=== PATIENT | female | born 1955 | race Caucasian/White ===

== ENCOUNTER 2019-07-29 14:13 | Outpatient (CLI) | payer OTHER, SELFPAY ==
--- NOTE | ~2019-07-29 | XR_ITS ---
XR knee RT min 4V DATE: 07/29/2019 14:41 INDICATION: Medial knee pain, swelling TECHNIQUE: 4 views COMPARISON: None FINDINGS: There is mild loss of height at the mid lumbar interspaces with mild particular spurring co nsistent with osteoarthritis. There is hypertrophic change of the tibial spines. No fracture or dislocation or joint effusion. No periosteal reaction or bone destruction. No radiopaq ue intra-articular loose body or chondrocalcinosis. IMPRESSION: Mild osteoarthritis primarily at medial compartment Reviewed, dictated and finalized at location A.
== END 2019-07-29 14:14 | disposition home or self-care (01) ==
PROVIDERS: PCP Family Medicine
DX: M17.11 Unilateral primary osteoarthritis, right knee (principal)
CPT/HCPCS: 73564

== ENCOUNTER 2019-08-25 19:33 | Outpatient (CLI) | payer OTHER, SELFPAY ==
--- NOTE | ~2019-08-25 | MR_ITS ---
EXAMINATION: MR knee RT wo/w con DATE: 08/25/2019 20:39 INDICATION: Right knee pain and swelling TECHNIQUE: Magnetic resonance imaging (MRI) of the right knee was performed without and with 14 mL Mu ltihance intravenous contrast. Sequences included sagittal and coronal T2-weighted FSE and T1-weight ed FSE, axial T1-weighted FS FSE, sagittal PD-weighted FSE and postcontrast T1-weighted FS FSE . COMPARISON: Right knee radiographs dated 07/29/2019 FINDINGS: Medial compartment: Longitudinal horizontal tear extending to the inferior articular surface of the body and posterior ho rn of the medial meniscus. Partial-thickness cartilage loss along the medial tibial plateau and media l side of the anterior to posterior weightbearing medial femoral condyle with small regions of likely full-thickness ulceration with underlying subarticular edema at the anteromedial aspect of the media l tibial plateau and along the medial rim of the anterior to central weightbearing medial femoral con dyle. Small marginal osteophytes are present. Lateral compartment: Additional horizontal tear extending to the inferior articular surface of the posterior horn and post erior body of the lateral meniscus. Partial-thickness cartilage loss with chondral surface irregulari ty along the medial side of the lateral tibial plateau extending onto the shoulder the intercondylar eminence. Patellofemoral compartment: Articular cartilage is normal. Ligaments and tendons: Anterior and posterior cruciate ligaments are normal. The medial collateral ligament and fibular molly ateral ligament complex are normal. The extensor mechanism is normal. The visualized medial and later al hamstring tendons as well as the iliotibial band are normal. Fluid: Physiologic amount of fluid in the joint space. No loose osteochondral bodies identified. Osseous/other: Normal marrow signal aside from the previously noted foci of subarticular edema in the medial compart ment. There is mild enhancement centimeters at the sites of subarticular edema. No other abnormally e nhancing lesions identified. No fracture or pathologic marrow replacing process. IMPRESSION: 1. Medial and lateral meniscal tears. 2. Mild osteoarthritis in the medial and lateral compartments with high-grade chondromalacia in the f ormer and with extensive moderate grade chondromalacia at the latter. Reviewed, dictated and finalized at location A. IMPRESSION: 1. Medial and lateral meniscal tears. 2. Mild osteoarthritis in the medial and lateral compartments with high-grade c hondromalacia in the former and with extensive moderate grade chondromalacia at the latter.
[2019-08-25 20:15] LABS: Estimated Glomerular Filt Rate > 60
== END 2019-08-25 19:34 | disposition home or self-care (01) ==
PROVIDERS: PCP Family Medicine; Visit Provider Family Medicine
DX: M17.11 Unilateral primary osteoarthritis, right knee (principal); M79.89 Other specified soft tissue disorders; S83.241A Other tear of medial meniscus, current injury, right knee, initial encounter; S83.281A Other tear of lateral meniscus, current injury, right knee, initial encounter; X58.XXXA Exposure to other specified factors, initial encounter
CPT/HCPCS: 36415; 73723; A9577

== ENCOUNTER 2019-09-06 09:47 | Outpatient (CLI) | payer OTHER, SELFPAY ==
--- NOTE | ~2019-09-06 | MM_ITS ---
EXAMINATION: MM screening garett BI w love HISTORY: Screening mammogram TECHNIQUE: Craniocaudal and mediolateral oblique 3-D tomosynthesis images were obtained and synthetic 2-D images were generated. CAD analysis was submitted and interpreted. COMPARISON: No prior mammogram is available for comparison at this institution. BREAST PARENCHYMAL COMPOSITION: There are scattered areas of fibroglandular density. FINDINGS: There is focal asymmetry in the upper outer quadrant of the right breast posteriorly. There is no mammographic evidence for malignancy in the left breast. IMPRESSION: 1. Focal right breast asymmetry, upper outer quadrant. 2. Additional mammographic views and possible breast ultrasound are recommended. BI-RADS Category 0: Incomplete: Needs additional imaging evaluation. Reviewed, dictated and finalized at location A. IMPRESSION: 1. Focal right breast asymmetry, upper outer quadrant. 2. Additional mammographic views and possible breast ultrasound are recommended . BI-RADS Category 0: Incomplete: Needs additional imaging evaluation.
--- NOTE | ~2019-09-06 | DEXA_ITS ---
Bone Density Report Name: Fallon Alvarado Age: 63 Sex: Female Ethnicity: White Date of : 1955 Indication: postmenopausal; prior fracture; Referring Provider: EDWIN, CORBIN Study: Bone densitometry was performed. Exam Date: September 06, 2019 Accession number: [id number] Bone Density: Region BMD T-score Z-score Classification AP Spine (L3, L4) 1.061 -0.4 1.5 Normal Femoral Neck (Left) 0.941 0.8 2.3 Normal Total Hip (Left) 0.977 0.3 1.5 Normal Total Hip Bilateral Avg 0.969 0.2 1.5 Normal Femoral Neck (Right) 0.926 0.7 2.2 Normal Total Hip (Right) 0.960 0.1 1.4 Normal World Health Organization criteria for BMD impression classify patients as: Normal (T-score at or above -1.0), Osteopenia (T-score between -1.0 and -2.5), or Osteoporosis (T-score at or below -2.5). 10-year Fracture Risk: FRAX not reported because: All T-scores for Spine Total, Hip Total, Femoral Neck at or above -1.0 Clinical Information Provided by Patient: Has had a low trauma fracture Has used the following medications: Calcium Patient maximum height was 63.5 Menopause Age: 39 No regular weight bearing exercise Drinks caffeinated beverages Onset of menses at age 14 Number of children 2 Impression: The patient has normal bone mass. The patient has risk factors, including: previous fracture. Discussion: BONE DENSITY IS ABOVE THE MINIMUM DESIRABLE LEVEL AT ALL SKELETAL SITES TESTED. This patient?s bone mineral density is above the minimum desirable level (T-score -1.0 or better) at all sites measured. The patient should follow a healthful lifestyle (good nutrition with adequate calcium and vitamin D, and appropriate weight-bearing exercise). Follow-Up: Consider repeating this study in 5 years or sooner if there is some new clinical indication. Reported by: COLETTE on 09/06/2019 10:18:00 AM. Reviewed, dictated and finalized at location [facility]er [facility]
== END 2019-09-06 09:48 | disposition home or self-care (01) ==
PROVIDERS: PCP Family Medicine; Visit Provider Nurse Practitioner
DX: Z12.31 Encounter for screening mammogram for malignant neoplasm of breast (principal); Z78.0 Asymptomatic menopausal state; R92.8 Other abnormal and inconclusive findings on diagnostic imaging of breast
CPT/HCPCS: 77063; 77067; 77080

== ENCOUNTER 2019-10-06 10:47 | Outpatient (CLI) | payer OTHER, MEDICARE, SELFPAY ==
--- NOTE | ~2019-10-06 | MMUS_ITS ---
EXAMINATION: MM diagnostic mammo unilat RT, US breast RT complete HISTORY: Focal asymmetry in upper outer quadrant of right breast reported on 09/06/2019 screening mamm ogram TECHNIQUE: Additional 3-D tomosynthesis images of the right breast were performed and synthetic 2-D i mages were generated. CAD analysis was submitted and interpreted. High resolution complete right tamara st ultrasound was performed. COMPARISON: 09/06/2019 bilateral digital screening mammogram FINDINGS: MAMMOGRAPHIC FINDINGS: No suspicious mass or architectural distortion is evident on these supplemental right mammographic vi ews. ULTRASOUND: At 4:00 3 cm from the nipple there is a 3.5 x 2.7 x 2.2 mm minimally septated sonolucent lesion, like ly a small minimally septated cyst. No suspicious mass or shadowing is evident elsewhere in the right breast. IMPRESSION: 1. No mammographic evidence of malignancy 2. Routine mammographic screening is recommended BI-RADS Category 2: Benign finding(s). Reviewed, dictated and finalized at location A. IMPRESSION: 1. No mammographic evidence of malignancy 2. Routine mammographic screening is recommended BI-RADS Category 2: Benign finding(s).
== END 2019-10-06 10:48 | disposition home or self-care (01) ==
PROVIDERS: PCP Family Medicine; Visit Provider Obstetrics & Gynecology Gynecology
DX: R92.8 Other abnormal and inconclusive findings on diagnostic imaging of breast (principal)
CPT/HCPCS: 76641; 77065

== ENCOUNTER 2019-10-23 08:11 | Outpatient (CLI) | payer OTHER, MEDICARE, SELFPAY ==
--- NOTE | 2019-10-23 08:14 | ECG_ITS ---
Measurements Intervals [place] Rate: 80 P: 58 ME: 140 QRS: 20 QRSD: 84 T: 41 QT: 343 QTc: 398 Interpretive Statements SINUS RHYTHM NONSPECIFIC T-WAVE ABNORMALITY- ANTERIOR LEADS BASELINE ARTIFACT- I, III, AVL BORDERLINE ECG Electronically Signed On 10-23-2019 8:28:50 CDT by Jimy Figueroa D.O.
[2019-10-23 08:45] LABS: Anion Gap 8 mmol/L (8-16); Blood Urea Nitrogen 17 mg/dL (7-17); Calcium 9.2 mg/dL (8.4-10.2); Carbon Dioxide 28 mmol/L (22-30); Chloride 102 mmol/L (98-107); Estimated Glomerular Filt Rate > 60; Glucose 160 mg/dL (65-105); Potassium 3.9 mmol/L (3.4-5.0); Sodium 138 mmol/L (137-145)
== END 2019-10-23 08:12 | disposition home or self-care (01) ==
PROVIDERS: Anesthesiology; PCP Family Medicine; Visit Provider Orthopaedic Surgery
DX: Z79.899 Other long term (current) drug therapy (principal); I10 Essential (primary) hypertension; R94.31 Abnormal electrocardiogram [ECG] [EKG]
CPT/HCPCS: 36415; 80048; 93005

== ENCOUNTER 2019-11-01 00:09 | Outpatient (CLI) | payer OTHER, MEDICARE, SELFPAY ==
[2019-11-01 19:29] LABS: SARS-CoV-2 RNA PCR Negative
== END 2019-11-01 00:10 | disposition home or self-care (01) ==
LOC: ANHCOVIDDT 00:10
PROVIDERS: PCP Family Medicine; Visit Provider Orthopaedic Surgery
DX: Z01.812 Encounter for preprocedural laboratory examination (principal); Z20.828 Contact with and (suspected) exposure to other viral communicable diseases
CPT/HCPCS: 87635; C9803; U0003

== ENCOUNTER 2019-11-04 00:33 | Day surgery (SDC) | payer OTHER, MEDICARE, SELFPAY ==
[2019-10-20 13:55] VITALS: BMI 28.3
--- NOTE | 2019-11-03 08:39 | WPDANESEPPF ---
Anes - Initial Pre Proc Eval Procedure: Operation Date: 11/04/19 10:00 Proposed Procedures p Right Knee Arthroscopy, Proceed As Indicated - Eddi Dobbins MD Date/Time: 11/03/19 08:39 Surgeon: Eddi Dobbins MD Pre Op Diagnosis: Right Medial And Lateral Meniscus Tear Patient Data Age: 64 Gender: F Height: 1.6 m Weight: 72.57 kg Allergies Allergy/AdvReac Type Severity Reaction Status Date / Time No Known Allergies Allergy Verified 11/04/19 08:51 Home Medications Medication Instructions Recorded Confirmed Type meloxicam 15 mg tablet 15 mg PO DAILY 10/09/19 11/04/19 History multivitamin 1 cap PO DAILY 10/09/19 11/04/19 History omeprazole 20 mg capsule,delayed 20 mg PO DAILY 10/09/19 11/04/19 History release chlorhexidine gluconate 4 % 1 applic TOPICAL ONCE #237 ml 10/13/19 11/04/19 Rx topical liquid atorvastatin 5 mg PO DAILY 10/20/19 11/04/19 History calcium carbonate-vitamin D3 1 tablet PO DAILY 10/20/19 11/04/19 History [Calcium with Vitamin D] cyanocobalamin (vitamin B-12) 1,000 mcg PO DAILY 10/20/19 11/04/19 History [Vitamin B-12] escitalopram oxalate [Lexapro] 5 mg PO DAILY 10/20/19 11/04/19 History lisinopril-hydrochlorothiazide 0.5 tablet PO DAILY 10/20/19 11/04/19 History meclizine 12.5 mg PO DAILY 10/20/19 11/04/19 History Patient hx anesthesia problems: none Family hx anesthesia problems: none PMFSH Past Medical History Medical History (Updated 11/03/19 @ 08:39 by Shalom Naylor DO) Arthritis Depression Dizziness GERD (gastroesophageal reflux disease) Hyperlipidemia Hypertension Rheumatoid arthritis Vertigo Family History Family History (Updated 10/09/19 @ 15:21 by Jennifer Maciel, RT(R)) Other Diabetes mellitus Heart disease Hypertension Social History Social History (Updated 10/09/19 @ 15:21 by Jennifer Maciel RT(R)) Smoking status: Never smoker Alcohol intake: never Spiritual care concerns: No Anes - Eval Final PreProcedure Day of Procedure 11/03/19 08:39 Patient weight: overweight Heart: regular rate and rhythm Lungs: clear to auscultation and normal air movement Airway: Mallampati scale class III Neurological: alert and oriented Last oral intake: >/= 8 hours ASA classification: III Emergent: no Anesthetic plan: proceed Anesthesia type and monitoring: general LMA and standard monitoring Informed Consent: The patient's anesthetic plan and its attendant risks and benefits were discussed with the patient/family/POA. Questions were solicited and answers provided to the satisfaction of the patient/family/POA.
[2019-11-04] VITALS (8 sets, daily range): BP systolic 126–154; BP diastolic 68–81; PULSE 73–91; RESP 12–18; TEMP 36.3–36.8; O2SAT 92–100; BMI 28.8
--- NOTE | 2019-11-04 07:21 | WPDHPUPDATE1 ---
History and Physical Update Update Date/Time: 11/04/19 07:21 History and Physical has been reviewed, including an updated exam of the patient. There are NO changes in the patient's condition. Risks, benefits, and alternatives have been discussed and questions answered. Patient agrees to proceed with procedure.
[2019-11-04] MEDS: ACETAMINOPHEN 500 MG TABLET 1000 MG PO (08:32)
[2019-11-04] MEDS: CELECOXIB 200 MG CAPSULE PO (08:32)
[2019-11-04] MEDS: LACTATED RINGERS 1,000 ML 30 ML IV CONT ×3 (08:44→13:09)
--- NOTE | 2019-11-04 08:49 | SUR.PREOP ---
PT STATES SHE HAS CRUTCHES AT HOME AND KNOWS HOW TO USE THEM. STATES SHE DOES NOT NEED CRUTCH TRAINING
--- NOTE | 2019-11-04 08:53 | SUR.PREOP ---
PT STATES SHE STOPPED ALL OF HER HOME MEDICATIONS ONE WEEK AGO EXCEPT HER LEXAPRO.
[2019-11-04] MEDS: ceFAZolin 2 GM/D5W 50 ML 2 GM/50 ML BAG IVPB (09:44)
--- NOTE | 2019-11-04 11:03 | PM.OP ---
Procedure Note - Brief Procedure Note - Brief Date of procedure: 11/04/19 Pre-op diagnosis: Right Medial And Lateral Meniscus Tear Post-op diagnosis: same Procedure performed: R KNEE SCOPE Anesthesia: GLMA Surgeon: Eddi Dobbins MD Estimated blood loss (mL): 5 Complications: No immediate complications Condition: stable Disposition: PACU
--- NOTE | 2019-11-05 06:15 | OP_ITS ---
DATE OF PROCEDURE: 11/04/2019 PREOPERATIVE DIAGNOSES: Partial medial meniscectomy, partial lateral meniscectomy. POSTOPERATIVE DIAGNOSES: Partial medial meniscectomy, partial lateral meniscectomy with grade 4 chondromalacia, medial femoral condyle and medial plateau. PROCEDURE: Right knee arthroscopy with partial medial meniscectomy, partial lateral meniscectomy, abrasion arthroplasty, and major synovectomy. ANESTHESIA: General. COMPLICATIONS: None. INDICATIONS: This is a 64-year-old female with medial meniscus and lateral meniscus tear. She was indicated for right knee arthroscopy. DESCRIPTION OF PROCEDURE: The patient was taken to the operating room in stable condition and placed in supine position. General anesthesia was induced and then the right lower extremity was prepped and draped sterilely from the toes to the thigh. Superomedial portal was used for outflow cannula. Inferolateral portal was used for the camera. The camera was introduced. There was grade 2 chondromalacia to the trochlea and to the patella. There was abundant of synovitis in the superomedial pouch. There was significant synovitis in the Hoffa synovium. The medial compartment was entered. There was a complex tear of the medial meniscus. A medial portal was established. The shaver and a biter were introduced at separate times to resect the medial meniscus that was affected, and then was contoured to a smooth base. There is an area of full-thickness cartilage defect in both the medial femoral condyle and the medial plateau and a Nasrin pick was placed and an abrasion arthroplasty, microfracture technique was performed until there was good bleeding bone from the whole sides. Next, a synovectomy was performed in the medial compartment. Next, the ACL was identified and was intact. Lateral compartment was entered. There was a small complex tear of the lateral meniscus that was resected with a shaver and a biter. Synovectomy was performed in that region as well. Next, the patellofemoral joint underwent chondroplasty. Hoffa synovium underwent synovectomy and then the trochlea also underwent chondroplasty. The instruments were removed after thorough irrigation of the knee joint. The wounds were approximated with 4-0 nylon suture. Sterile dressing was applied. The patient was extubated. Jania I MT: Axel
== END 2019-11-04 13:13 | disposition home or self-care (01) ==
PROVIDERS: PCP Family Medicine; Visit Provider Orthopaedic Surgery
PROC: (CPT 29870; principal; 2019-11-04 10:00)
DX: S83.231A Complex tear of medial meniscus, current injury, right knee, initial encounter (principal); S83.271A Complex tear of lateral meniscus, current injury, right knee, initial encounter; X50.0XXA Overexertion from strenuous movement or load, initial encounter; Y93.83 Activity, rough housing and horseplay; Y99.8 Other external cause status
CPT/HCPCS: 29880; A9270; J0690; J1100; J2250; J2405; J2704; J3010; J7120

== ENCOUNTER 2019-11-30 17:52 | Emergency (ER) | payer OTHER, MEDICARE, SELFPAY ==
--- NOTE | ~2019-11-30 | CT_ITS ---
EXAMINATION: CTA chest PE protocol DATE: 11/30/2019 19:09 INDICATION: Cough. TECHNIQUE: Computed tomography angiography (CTA) of the chest was performed with 100 mL Omnipaque-350 intravenous contrast timed to evaluate the pulmonary arteries. Coronal maximum intensity projection 3D-reconstructions were created by the technologist. Automated exposure control and iterative reconst ruction technique were employed. The dose-length product was 247.81 mGy-cm. COMPARISON: CT abdomen and pelvis 12/23/2017 FINDINGS: There is mild scarring at the lung apices. There is mild atelectasis bilaterally. Calcified right lung nodules and calcified right hilar lymph nodes are consistent with old granulomatous disea se. No pleural effusion. The heart size is normal. There are coronary artery calcifications. No peric ardial effusion. Calcifications in the spleen are consistent with old granulomatous disease. There is no pulmonary embolus. There is mild thoracic spondylosis. IMPRESSION: 1. No pulmonary embolus. Reviewed, dictated and finalized at location A. IMPRESSION: 1. No pulmonary embolus.
--- NOTE | ~2019-11-30 | XR_ITS ---
EXAMINATION: XR chest 1V portable DATE: 11/30/2019 18:26 INDICATION: Right shoulder pain. TECHNIQUE: A single frontal view of the chest was obtained. COMPARISON: Chest 2 views 12/23/2017 FINDINGS: The chest demonstrates clear lungs without pneumonia, pleural effusion, or pneumothorax. Th e heart size is normal. There is a prominent right paracardial fat pad. IMPRESSION: 1. No acute cardiopulmonary disease. Reviewed, dictated and finalized at location A.
[2019-11-30 17:54] VITALS: BP 129/95; PULSE 103; RESP 18; TEMP 36.1; O2SAT 98
--- NOTE | 2019-11-30 18:10 | ED.GENADULT ---
HPI - General Adult General Chief complaint: Extremity Injury, Upper Stated complaint: right arm pain/ bronchitis Time Seen by Provider: 11/30/19 18:04 Source: patient, family and old records reviewed Mode of arrival: ambulatory Limitations: no limitations History of Present Illness HPI narrative: Patient is a 64-year-old female who presents to emergency department for evaluation of right arm pain for the last 2 to 3 days as an aching pain from the neck down into the arm described as spasms patient notes she was seen by primary care in the last day diagnosed with bronchitis and has been having a cough and some dyspnea since developing the cough 3 weeks ago which is nonproductive denies other URI symptoms or sick contacts patient was seen by primary care and given codeine cough syrup and an inhaler patient notes she has not had to use the inhaler patient on arrival notes that she has had this aching pain of the arm nothing is made it better or worse patient denies injury trauma or similar occurrence in the past Related Data Home Medications Medication Instructions Recorded Confirmed meloxicam 15 mg tablet 15 mg PO DAILY 10/09/19 11/04/19 multivitamin 1 cap PO DAILY 10/09/19 11/04/19 omeprazole 20 mg capsule,delayed 20 mg PO DAILY 10/09/19 11/04/19 release atorvastatin 5 mg PO DAILY 10/20/19 11/04/19 calcium carbonate-vitamin D3 1 tablet PO DAILY 10/20/19 11/04/19 [Calcium with Vitamin D] cyanocobalamin (vitamin B-12) 1,000 mcg PO DAILY 10/20/19 11/04/19 [Vitamin B-12] escitalopram oxalate [Lexapro] 5 mg PO DAILY 10/20/19 11/04/19 lisinopril-hydrochlorothiazide 0.5 tablet PO DAILY 10/20/19 11/04/19 meclizine 12.5 mg PO DAILY 10/20/19 11/04/19 codeine-guaifenesin [Virtussin AC] ml 11/30/19 Allergies Allergy/AdvReac Type Severity Reaction Status Date / Time No Known Allergies Allergy Verified 11/30/19 17:52 Review of Systems Review of Systems: All systems reviewed & are unremarkable except as noted in HPI and below PMFSH Past Medical History Medical History Arthritis Depression Dizziness GERD (gastroesophageal reflux disease) Hyperlipidemia Hypertension Rheumatoid arthritis Vertigo Social History Social History Smoking status: Never smoker Alcohol intake: never Gender identity (if verbalized by the patient): Female Spiritual care concerns: No Exam Narrative: Exam Narrative: GENERAL: Well-appearing, well-nourished, and in no acute distress. HEAD: Normocephalic, atraumatic. EYES: PERRLA and EOMI. ENT: Nares clear, no rhinorrhea or epistaxis. Mucous membranes moist. Oropharynx without tonsillar hypertrophy exudate or other lesions. NECK: Supple. No adenopathy or masses. CHEST: Clear to auscultation. No respiratory distress. No wheezes rales or rhonchi HEART: Regular rate and rhythm. No murmur heard. Normal peripheral pulses. EXTREMITIES: Normal range of motion. No edema. Tenderness of the right trapezius musculature with spasming bilaterally SKIN: Warm, dry, no rash. NEURO: No focal deficits. Alert and oriented x3. Cranial nerves II through XII grossly intact. Normal speech. Neurovascularly intact. Capillary refill less than 2 seconds PSYCH: Normal mood and affect. Course Vital Signs Vital signs: Vital Signs Temperature 97 F L 11/30/19 17:54 Pulse Rate 103 H 11/30/19 17:54 Respiratory Rate 18 11/30/19 17:54 Blood Pressure 129/95 H 11/30/19 17:54 Pulse Oximetry 98 11/30/19 17:54 Temperature 97 F L 11/30/19 17:54 Pulse Rate 103 H 11/30/19 17:54 Respiratory Rate 18 11/30/19 17:54 Blood Pressure 129/95 H 11/30/19 17:54 Pulse Oximetry 98 11/30/19 17:54 Medical Decision Making MDM Narrative Medical decision making narrative: Patient in the room at this time in no distress no PE seen on exam will be treated for musculoskeletal pain referred to p
[2019-11-30 18:35] LABS: Basophils Absolute Auto 0.1 K/mm3 (0.0-0.1); Basophils Percent Auto 0.7 % (0.2-1.2); Eosinophils Absolute Auto 0.3 K/mm3 (0-0.3); Eosinophils Percent Auto 3.3 % (0-4.4); Hematocrit 39.1 % (37.0-47.0); Immature Granulocyte Absolute 0.02 K/mm3 (0.00-0.031); Immature Granulocyte Percent A 0.3 % (0-0.5); Lymphocytes Absolute Auto 2.51 K/mm3 (0.9-3.2); Lymphocytes Percent Auto 33.2 % (18.3-44.2); Mean Corpuscular HGB Conc 33.2 g/dl (32-36); Mean Corpuscular Hemoglobin 28.2 pg (26-34); Mean Corpuscular Volume 84.8 fl (80-100); Monocytes Absolute Auto 0.6 K/mm3 (0.1-0.6); Monocytes Percent Auto 7.5 % (2.6-8.5); Neutrophils Absolute Auto 4.2 K/mm3 (1.3-6.7); Platelet Count Result 354 k/mm3 (150-375); Red Blood Count 4.61 M/mm3 (4.2-5.4); Red Cell Distribution Width 13.9 % (11.5-14.5); White Blood Count 7.6 K/mm3 (4.5-10.0)
[2019-11-30] MEDS: diazePAM (*CRX) 5 MG TABLET PO (18:35)
[2019-11-30] MEDS: KETOROLAC 30 MG/ML VIAL (*BKC) IV PUSH (18:35)
[2019-11-30 18:46] LABS: INR 0.9; Prothrombin Time 12.3 Seconds (11.1-14.7)
[2019-11-30 18:47] LABS: Partial Thromboplastin Time 25.5 SECONDS (22.3-36.8)
[2019-11-30 18:49] LABS: D Dimer 0.72 ug/mL (<0.48)
[2019-11-30 18:53] LABS: Anion Gap 4 mmol/L (8-16); Blood Urea Nitrogen 20 mg/dL (7-17); Calcium 9.4 mg/dL (8.4-10.2); Carbon Dioxide 28 mmol/L (22-30); Chloride 104 mmol/L (98-107); Estimated CRCL calculation 52 ml/min; Estimated Glomerular Filt Rate > 60; Glucose 104 mg/dL (65-105); Sodium 136 mmol/L (137-145)
[2019-11-30 19:33] VITALS: BP 117/66; PULSE 77; RESP 16; TEMP 36.6; O2SAT 94
== END 2019-11-30 19:35 | disposition home or self-care (01) ==
PROVIDERS: Emergency Medicine Emergency Medical Services; Emergency Provider Emergency Medicine; PCP Family Medicine
DX: M79.601 Pain in right arm (principal); J40 Bronchitis, not specified as acute or chronic; M19.90 Unspecified osteoarthritis, unspecified site; F32.9 Major depressive disorder, single episode, unspecified; K21.9 Gastro-esophageal reflux disease without esophagitis; E78.5 Hyperlipidemia, unspecified; I10 Essential (primary) hypertension; M06.9 Rheumatoid arthritis, unspecified
CPT/HCPCS: 36415; 71045; 71275; 80048; 85025; 85380; 85610; 85730; 96374; 99284; A9270; J1885; Q9967

== ENCOUNTER 2024-01-20 16:13 | Emergency (ER) | payer OTHER, MEDICARE, MEDICAID, SELFPAY ==
--- NOTE | ~2024-01-20 | CT_ITS ---
EXAMINATION: CT cervical spine wo con DATE: 01/20/2024 16:45 INDICATION: Fall, Posterior H.I./ Cervical pain TECHNIQUE: Computed tomography (CT) of the cervical spine was performed without intravenous contrast. Automated exposure control and iterative reconstruction technique were employed. The dose-length pro duct was 279.78 mGy-cm. COMPARISON: None. FINDINGS: Vertebral Body Alignment: Intact. Craniocervical and atlantoaxial alignment: Mild degenerative change. Alignment intact. Osseous structures/fracture: No evidence of a lytic or blastic process in the visualized spine. No e vidence of acute fracture. Cervical soft tissues: The paraspinal soft tissues planes are maintained. Biapical pleural scarring Degenerative changes: Degenerative changes, without severe neural foraminal or central canal narrowin g. IMPRESSION: No acute fracture or traumatic malalignment in the cervical spine. Reviewed, dictated and finalized at location K. [facility]
--- NOTE | ~2024-01-20 | XR_ITS ---
EXAM: XR knee RT 3V DATE: 01/20/2024 16:45 HISTORY: fall, Rt. knee pain . COMPARISON: 10/09/2019. FINDINGS: Decreased mineralization. No fracture or dislocation. No lytic or blastic lesion. Moderate tricompartmental osteoarthritis. No erosion or periosteal change. Small-volume joint effusio. IMPRESSION: No acute osseous finding in the right knee. Reviewed, dictated and finalized at location K. [employer]
--- NOTE | ~2024-01-20 | CT_ITS ---
EXAMINATION: CT brain wo con DATE: 01/20/2024 16:45 INDICATION: Fall, Posterior H.I./ Cervical pain . TECHNIQUE: Computed tomography (CT) of the head was performed without intravenous contrast. The mA wa s adjusted according to patient size. Iterative reconstruction technique was employed. The dose-lengt h product was 605.33 mGy-cm. COMPARISON: None. FINDINGS: No acute intracranial hemorrhage or extra-axial fluid collection. No hydrocephalus, mass, or herniation. No acute ischemic infarct. Unremarkable dural venous sinus attenuation. No acute osseous abnormality. Right posterior scalp swelling. Mild maxillary and ethmoid mucosal thickening, the remaining aerated spaces are clear. Moderate atrophy and chronic white matter change. Atherosclerotic intracranial calcification. 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 Small old right basal ganglia lacunar infarct. IMPRESSION: No acute intracranial process. Reviewed, dictated and finalized at location K. [employer]
--- NOTE | ~2024-01-20 | XR_ITS ---
EXAM: XR hip BI 2V w AP pelvis DATE: 01/20/2024 16:45 HISTORY: Fall, b/l hip pain . COMPARISON: None available. FINDINGS: Normal mineralization. No fracture or dislocation. No lytic or blastic lesion. Lumbar dege nerative disc disease. Mild degenerative change in the bilateral hips and pubic symphysis. No erosion or periosteal change. Soft tissues within normal limits. IMPRESSION: No acute osseous finding in the pelvis or bilateral hips. Reviewed, dictated and finalized at location K. [employer]
[2024-01-20 16:13] VITALS: BP 134/67; PULSE 95; RESP 16; TEMP 36.6; O2SAT 95
--- NOTE | 2024-01-20 16:25 | ED_ITS ---
HPI - General Adult General Chief complaint: Fall Stated complaint: fall, head injury Time Seen by Provider: 01/20/24 16:19 History of Present Illness HPI narrative: Fallon chavez a 68F with a PMH of a meniscus tear that presented to the ED after she tripped and fell down the stairs. She hit her head but did not lose consciousness. She has pain in the back of her head and in her left hip and right knee as well. She has no other concerns. Related Data Home Medications Medication Instructions Recorded Confirmed meloxicam 15 mg tablet 15 mg PO DAILY 10/09/19 01/20/24 omeprazole 20 mg capsule,delayed 20 mg PO DAILY 10/09/19 01/20/24 release atorvastatin 10 mg tablet 40 mg PO DAILY 10/20/19 01/20/24 calcium 600 mg (as 1 tablet PO DAILY 10/20/19 01/20/24 carbonate)-vitamin D3 10 mcg (400 unit) tablet (Calcium with Vitamin D) escitalopram oxalate 5 mg tablet 10 mg PO DAILY 10/20/19 01/20/24 (Lexapro) amlodipine 10 mg tablet 10 mg PO DAILY 01/20/24 01/20/24 hydrochlorothiazide 12.5 mg capsule 12.5 mg PO DAILY 01/20/24 01/20/24 Allergies Allergy/AdvReac Type Severity Reaction Status Date / Time GENE Inhibitors Allergy Anaphylaxis Verified 01/20/24 16:15 Review of Systems Review of Systems: All systems reviewed & are unremarkable except as noted in HPI and below PMFSH Past Medical History Medical History (Updated 01/20/24 @ 17:29 by Ivan Portillo DO) Arthritis Depression Dizziness GERD (gastroesophageal reflux disease) Hyperlipidemia Hypertension Rheumatoid arthritis Vertigo Family History Family History Other Diabetes mellitus Heart disease Hypertension Social History Social History Smoking status: Never smoker Alcohol intake: never Gender identity (if verbalized by the patient): Female Spiritual care concerns: No Exam Const: General: cooperative, healthy appearing, comfortable, no acute distress, well developed, alert, awake and Physically active Orientation/consciousness: oriented to person, oriented to place and oriented to time HENMT: Head: normal to inspection, normocephalic and atraumatic Ears: hearing grossly normal bilaterally and external ears normal Face/Nose/Sinus: Normal external nose present Other: contusion on posterior andrez Eyes: General: appearance normal, both eyes and all related structures Periorbital: periorbital findings normal Sclera: sclerae normal Pupils: Equal, round and reactive pupils present Neck: Neck: normal visual inspection Chest: Chest palpation & inspection: normal inspection of the chest Resp: Effort & Inspection: normal respiratory effort, able to speak in complete sentences and no respiratory distress Cardio: Jugular venous distension: no JVD Skin: General skin exam: normal color and no rashes or lesions noted Neuro: General: oriented to person, oriented to place and oriented to time Cranial nerves: Yes Equal, round and reactive pupils present Extrem: General: normal to inspection Course Course Emergency Course: Declined pain meds. Ordered imaging. EXAM: XR knee RT 3V DATE: 01/20/2024 16:45 HISTORY: fall, Rt. knee pain . COMPARISON: 10/09/2019. FINDINGS: Decreased mineralization. No fracture or dislocation. No lytic or blastic lesion. Moderate tricompartmental osteoarthritis. No erosion or periosteal change. Small-volume joint effusio. IMPRESSION: No acute osseous finding in the right knee. EXAM: XR hip BI 2V w AP pelvis DATE: 01/20/2024 16:45 HISTORY: Fall, b/l hip pain . COMPARISON: None available. FINDINGS: Normal mineralization. No fracture or dislocation. No lytic or blastic lesion. Lumbar degenerative disc disease. Mild degenerative change in the bilateral hips and pubic symphysis. No erosion or periosteal change. Soft tissues within normal limits. IMPRESSION: No acute osseous finding in the pelvis or bilateral hips. EXAMINATION: CT cervical spine wo con DATE: 01/20/2024 16:45 INDICATION: Fall, Posterior H.I./ Cervical pain TECHNIQUE: Computed tomography (CT) of the cervical spine was performed without intravenous contrast. Automated exposure control and iterative reconstruction technique were employed. The dose-length product was 279.78 mGy-cm. COMPARISON: None. FINDINGS: Vertebral Body Alignment: Intact. Craniocervical and atlantoaxial alignment: Mild degenerative change. Alignment intact. Osseous structures/fracture: No evidence of a lytic or blastic process in the visualized spine. No evidence of acute fracture. Cervical soft tissues: The paraspinal soft tissues planes are maintained. Biapical pleural scarring Degenerative changes: Degenerative changes, without severe neural foraminal or central canal narrowing. IMPRESSION: No acute fracture or traumatic malalignment in the cervical spine. EXAMINATION: CT brain wo con DATE: 01/20/2024 16:45 INDICATION: Fall, Posterior H.I./ Cervical pain . TECHNIQUE: Computed tomography (CT) of the head was performed without intravenous contrast. The mA was adjusted according to patient size. Iterative reconstruction technique was employed. The dose-length product was 605.33 mGy- cm. COMPARISON: None. FINDINGS: No acute intracranial hemorrhage or extra-axial fluid collection. No hydrocephalus, mass, or herniation. No acute ischemic infarct. Unremarkable dural venous sinus attenuation. No acute osseous abnormality. Right posterior scalp swelling. Mild maxillary and ethmoid mucosal thickening, the remaining aerated spaces are clear. Moderate atrophy and chronic white matter change. Atherosclerotic intracranial calcification. 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 Small old right basal ganglia lacunar infarct. IMPRESSION: No acute intracranial process. Vital Signs Vital signs: Vital Signs Temperature 97.8 F 01/20/24 16:13 Pulse Rate 95 01/20/24 16:13 Respiratory Rate 16 01/20/24 16:13 Blood Pressure 134/67 01/20/24 16:13 Pulse Oximetry 95 01/20/24 16:13 Oxygen Delivery Room Air 01/20/24 16:13 Temperature 97.8 F 01/20/24 16:13 Pulse Rate 95 01/20/24 16:13 Respiratory Rate 16 01/20/24 16:13 Blood Pressure 134/67 01/20/24 16:13 Pulse Oximetry 95 01/20/24 16:13 Oxygen Delivery Room Air 01/20/24 16:13 Medical Decision Making Vital Signs Vital Signs: Vital Signs Temperature 97.8 F 01/20/24 16:13 Pulse Rate 95 01/20/24 16:13 Respiratory Rate 16 01/20/24 16:13 Blood Pressure 134/67 01/20/24 16:13 Pulse Oximetry 95 01/20/24 16:13 Oxygen Delivery Room Air 01/20/24 16:13 Temperature 97.8 F 01/20/24 16:13 Pulse Rate 95 01/20/24 16:13 Respiratory Rate 16 01/20/24 16:13 Blood Pressure 134/67 01/20/24 16:13 Pulse Oximetry 95 01/20/24 16:13 Oxygen Delivery Room Air 01/20/24 16:13 Discharge Plan Discharge Clinical Impression: Fall Patient Disposition: Home, Self-Care Condition: Stable Instructions: Fall Prevention for Older Adults (ED) Prescriptions: No Action amlodipine 10 mg tablet 10 mg PO DAILY hydrochlorothiazide 12.5 mg capsule 12.5 mg PO DAILY meloxicam 15 mg tablet 15 mg PO DAILY omeprazole 20 mg capsule,delayed release(DR/EC) 20 mg PO DAILY atorvastatin 10 mg tablet 40 mg PO DAILY calcium carbonate-vitamin D3 [Calcium with Vitamin D] 600 mg(1,500mg) -400 unit Tablet 1 tablet PO DAILY escitalopram oxalate [Lexapro] 5 mg Tablet 10 mg PO DAILY Follow-up/Referrals: UNKNOWN,DOCTOR [Primary Care Provider] -
[2024-01-20 17:33] VITALS: BP 122/66; PULSE 78; RESP 16; TEMP 36.6; O2SAT 95
== END 2024-01-20 17:33 | disposition home or self-care (01) ==
PROVIDERS: Emergency Provider Family Medicine; PCP Internal Medicine
DX: M25.552 Pain in left hip (principal); R51.9 Headache, unspecified; M25.561 Pain in right knee; E78.5 Hyperlipidemia, unspecified; I10 Essential (primary) hypertension; M06.9 Rheumatoid arthritis, unspecified; Z79.899 Other long term (current) drug therapy; W10.9XXA Fall (on) (from) unspecified stairs and steps, initial encounter
CPT/HCPCS: 70450; 72125; 73521; 73562; 99284